=== PATIENT | female | born 1945 | race Caucasian/White ===

== ENCOUNTER 2017-08-23 18:05 | Emergency (ER) | payer MEDICARE, BC ==
[~2017-08-23] VITALS: Ht 162.6 cm; Wt 67.0 kg
[~2017-08-23 18:05] MED LIST: AMBIEN5 MG PO; CLOBETASOL0.053 EX; FLEXERIL PO; LIPITOR20 MG PO; ULTRAM50 M1 PO
[2017-08-23 18:34] LABS: URINE BILIRUBIN - DIPSTICK NEGATIVE (NEGATIVE); URINE BLOOD DIPSTICK NEGATIVE (NEGATIVE); URINE COLOR YELLOW; URINE GLUCOSE - DIPSTICK NEGATIVE (NEGATIVE); URINE KETONE NEGATIVE (NEGATIVE); URINE LEUK ESTERASE TRACE (NEGATIVE); URINE NITRITE - DIPSTICK NEGATIVE (Negative); URINE PROTEIN - DIPSTICK NEGATIVE (NEG-TRACE); URINE SPECIFIC GRAVITY >=1.030; URINE UROBILINOGEN - DIPSTICK 0.2 E.U./dL (0.2)
[2017-08-23 18:38] LABS: URINE CLARITY CLEAR
[2017-08-23] MEDS ORDERED: OXYBUTYNIN10 MG PO (18:52)
[2017-08-23] MEDS ORDERED: ATORVASTATIN CA10 MG PO (18:53)
[2017-08-23] MEDS ORDERED: CELECOXIB200 MG PO (18:53)
[2017-08-23] MEDS ORDERED: PRILOSEC20 MG PO (18:54)
[2017-08-23] MEDS ORDERED: LEVOTHYROXIN50 MCG PO (18:55)
[2017-08-23] MEDS ORDERED: PYRIDIUM200 MG PO (20:06)
[2017-08-23] MEDS ORDERED: CIPROFLOXACN500 MG PO (20:06)
[2017-08-23 20:27] VITALS: BP 142/68
== END 2017-08-23 20:27 | disposition home or self-care (01) ==
LOC: ED 18:05
PROVIDERS: Emergency Medicine
DX: N34.2 Other urethritis (principal); R30.0 Dysuria; R35.0 Frequency of micturition

== ENCOUNTER → 2018-10-22 | Outpatient (REF) | payer MEDICARE, BC ==
[~2018-10-22] MED LIST changes: +ATORVASTATIN CA10 MG PO; +CELECOXIB200 MG PO; +CIPROFLOXACN500 MG PO; +LEVOTHYROXIN50 MCG PO; +OXYBUTYNIN10 MG PO; +PRILOSEC20 MG PO; +PYRIDIUM200 MG PO
[2018-10-22 08:11] LABS: HEMATOCRIT 43.8 % (37.0-47.0); HEMOGLOBIN 14.7 g/dl (12.0-16.0); IMMATURE GRANULOCYTES 0.4 % (0.0-5.0); MEAN CELL VOLUME 89.8 fL CALC (80.0-100.0); MEAN CORPUSCULAR HGB 30.1 pG CALC (26.0-32.0); MEAN CORPUSCULAR HGB CONC 33.6 g/L CALC (32.0-36.0); NEUT# 3.05 thou/uL (2.00-7.15); RED BLOOD COUNT 4.88 mill/uL (4.20-5.60); RED CELL DISTRI WIDTH 12.9 % (11.5-15.5)
[2018-10-22 09:12] LABS: ALBUMIN 4.4 g/dL (3.2-5.0); ALKALINE PHOSPHATASE 70 u/l (38-126); ANION GAP 13 (6-22 (CALC)); BILIRUBIN, TOTAL 0.6 mg/dL (0.0-1.4); BUN 9 mg/dL (8-23); BUN/CREATININE RATIO 15 (12-20 (CALC)); CALCULATED LDLCHOLESTEROL 74 mg/dL (62-129 (CALC)); CARBON DIOXIDE 31 mmol/l (22-30); CHLORIDE 102 mmol/l (95-108); CHOLESTEROL HDL RATIO 2.1 (<4.4 (CALC)); CREATININE 0.6 mg/dL (0.5-1.0); GFR > 60 ML/MIN (>=60 (CALC)); GFR FOR AFR.AMER. > 60 ML/MIN (>=60 (CALC)); HDL CHOLESTEROL 85 mg/dL (>=40); POTASSIUM 4.1 mmol/l (3.5-5.1); SGOT/AST 29 u/l (9-36); SODIUM 141 mmol/l (137-146); TOTAL CHOLESTEROL 177 mg/dl (0-199); TOTAL PROTEIN 6.9 g/dL (6.3-8.2); TOTAL TRIGLYCERIDES 91 mg/dl (30-149); VLDL CHOLESTROL 18 mg/dl (0-48 (CALC))
[2018-10-22 09:34] LABS: TSH, 3RD GENERATION 1.89 uIU/mL (0.47 - 4.68)
== END | disposition home or self-care (01) ==
LOC: LAB 07:20
PROVIDERS: ATTEND Internal Medicine
DX: E78.49 Other hyperlipidemia (principal)

== ENCOUNTER 2018-12-10 08:28 | Emergency (ER) | payer MEDICARE, BC ==
[~2018-12-10] VITALS: Ht 162.6 cm; Wt 72.0 kg
[2018-12-10] MEDS ORDERED: MYRBETRIQ25 MG PO (08:41)
[2018-12-10] MEDS ORDERED: FOSAMAX PLUS PO (08:42)
[2018-12-10] MEDS ORDERED: TRAMADOL HYDROC50 MG PO (09:51)
[2018-12-10 10:04] VITALS: BP 154/70
== END 2018-12-10 10:04 | disposition home or self-care (01) ==
LOC: ED 08:28
PROC: 2W3QX1Z Immobilization of Right Lower Leg using Splint (ICD-10-PCS; principal; 2018-12-10)
DX: S92.354A Nondisplaced fracture of fifth metatarsal bone, right foot, initial encounter for closed fracture (principal); X50.1XXA Overexertion from prolonged static or awkward postures, initial encounter; Y93.01 Activity, walking, marching and hiking; Y92.232 Corridor of hospital as the place of occurrence of the external cause

== ENCOUNTER 2019-03-30 07:59 | Day surgery (SDC) | payer MEDICARE, BC ==
[~2019-03-30 07:59] MED LIST changes: +CALCIUM600 M1 PO; +FOSAMAX PLUS PO; +MYRBETRIQ25 MG PO; +TRAMADOL HYDROC50 MG PO; +VITAMIN D2000 UNI3 PO
[2019-03-30 10:37] VITALS: BP 139/62
== END 2019-03-30 10:50 | disposition home or self-care (01) ==
LOC: ENDO 07:59 → ORM 08:00 → ENDO 09:55
PROVIDERS: ATTEND Surgery
PROC: 0DJD8ZZ Inspection of Lower Intestinal Tract, Via Natural or Artificial Opening Endoscopic (ICD-10-PCS; principal; 2019-03-30)
DX: K57.90 Diverticulosis of intestine, part unspecified, without perforation or abscess without bleeding (principal); E03.9 Hypothyroidism, unspecified

== ENCOUNTER 2020-01-06 14:32 | Emergency (ER) | payer MEDICARE, BC ==
[2020-01-06] MEDS ORDERED: FLONASE AL50 MCG/ACT (15:14)
[2020-01-06] MEDS ORDERED: METHYLPRED4 MG PO (15:14)
[2020-01-06] MEDS ORDERED: VOLTAREN1%GEL TOP (16:45)
[2020-01-06 16:50] VITALS: BP 146/72
== END 2020-01-06 17:20 | disposition home or self-care (01) ==
LOC: ED 14:32
DX: M25.512 Pain in left shoulder (principal); S00.93XA Contusion of unspecified part of head, initial encounter; S70.02XA Contusion of left hip, initial encounter; W11.XXXA Fall on and from ladder, initial encounter; Y93.E9 Activity, other interior property and clothing maintenance; Y92.009 Unspecified place in unspecified non-institutional (private) residence as the place of occurrence of the external cause

== ENCOUNTER 2021-02-05 06:44 | Day surgery (SDC) | payer MEDICARE, BC ==
[~2021-02-05] VITALS: Ht 162.6 cm; Wt 64.9 kg
[~2021-02-05 06:44] MED LIST changes: +FLONASE AL50 MCG/ACT; +IMODIUM2 MG PO; +METHYLPRED4 MG PO; +VOLTAREN1%GEL TOP
[2021-02-05 09:42] VITALS: BP 152/68
== END 2021-02-05 10:06 | disposition home or self-care (01) ==
LOC: ENDO 06:44 → ORM 08:55 → ENDO 10:06
PROVIDERS: ATTEND Surgery
PROC: 0DBE8ZX Excision of Large Intestine, Via Natural or Artificial Opening Endoscopic, Diagnostic (ICD-10-PCS; principal; 2021-02-05)
DX: K57.31 Diverticulosis of large intestine without perforation or abscess with bleeding (principal); K64.8 Other hemorrhoids; E03.9 Hypothyroidism, unspecified; E78.5 Hyperlipidemia, unspecified; F41.9 Anxiety disorder, unspecified; Z80.0 Family history of malignant neoplasm of digestive organs

== ENCOUNTER 2024-03-21 18:15 | Emergency (ER) | payer MEDICARE, BC ==
[2024-03-21] VITALS (10 sets, daily range): BP systolic 139–194; BP diastolic 58–80
[~2024-03-21] VITALS: Ht 162.6 cm; Wt 61.0 kg
[2024-03-21] MEDS ORDERED: SODIUM CHLORIDE 0.9% 1,000 ML IV ONE (20:05)
[2024-03-21] MEDS ORDERED: DICYCLOMINE HCL 20 MG/2 ML VIAL IM ONE (20:05)
[2024-03-21 20:26] LABS: BASO% 0.2 % (0-3); EOS% 0.6 % (0-8); HEMATOCRIT 45.4 % (37.0-47.0); IMMATURE GRANULOCYTES 0.2 % (0.0-5.0); LYMPH% 13.7 % (15-41); MEAN CORPUSCULAR HGB 29.4 pG CALC (26.0-32.0); MONO% 9.9 % (2-13); NEUT# 9.35 thou/uL (2.00-7.15); NEUT% 75.4 % (42-76); RED BLOOD COUNT 5.1 mill/uL (4.20-5.60); RED CELL DISTRI WIDTH 12.4 % (11.5-15.5)
[2024-03-21 20:48] LABS: ALBUMIN 4.7 g/dL (3.2-5.0); BILIRUBIN, TOTAL 0.8 mg/dL (0.02-1.3); CREATININE 0.6 mg/dL (0.5-1.0); POTASSIUM 3.4 mmol/l (3.5-5.1); TOTAL PROTEIN 7.8 g/dL (6.3-8.2)
[2024-03-21 21:16] LABS: URINE BILIRUBIN - DIPSTICK Negative (NEGATIVE); URINE BLOOD DIPSTICK Negative (NEGATIVE); URINE GLUCOSE - DIPSTICK Negative (NEGATIVE); URINE KETONE Negative (NEGATIVE); URINE NITRITE - DIPSTICK Negative (Negative); URINE PROTEIN - DIPSTICK Negative (NEG-TRACE); URINE SPECIFIC GRAVITY 1.015; URINE UROBILINOGEN - DIPSTICK 0.2 E.U./dL (0.2)
[2024-03-21 21:17] LABS: URINE COLOR Yellow; URINE LEUK ESTERASE Small (NEGATIVE)
[2024-03-21 21:24] LABS: URINE RBC 0-2 RBC/hpf (0-5); URINE SQUAMOUS EPITHELIAL CELL FEW EPI/hpf (0-FEW)
[2024-03-21] MEDS ORDERED: DICYCLOMINE HYD10 MG PO (23:23)
== END 2024-03-21 23:33 | disposition home or self-care (01) ==
LOC: ED 18:15
PROVIDERS: Family Medicine
DX: R19.7 Diarrhea, unspecified (principal); R10.30 Lower abdominal pain, unspecified; E78.5 Hyperlipidemia, unspecified; E03.9 Hypothyroidism, unspecified; K52.9 Noninfective gastroenteritis and colitis, unspecified

== ENCOUNTER 2024-10-17 01:16 | Emergency (ER) | payer MEDICARE, BC ==
[~2024-10-17] VITALS: Ht 162.6 cm; Wt 56.0 kg
[~2024-10-17 01:16] MED LIST changes: +DICYCLOMINE HYD10 MG PO
[2024-10-17 01:31] VITALS: BP 172/74
[2024-10-17] MEDS ORDERED: MORPHINE SULFATE 4 MG/ML VIAL IV ONE (01:40)
[2024-10-17] MEDS ORDERED: SODIUM CHLORIDE 0.9% 1,000 ML IV ONE ×3 (01:40→02:40)
[2024-10-17] MEDS ORDERED: ONDANSETRON HCl 4 MG/2 ML SDV IV ONE (01:40)
[2024-10-17 01:49] LABS: BASO% 0.2 % (0-3); EOS% 0.9 % (0-8); HEMATOCRIT 38.7 % (37.0-47.0); IMMATURE GRANULOCYTES 0.3 % (0.0-5.0); LYMPH% 15.7 % (15-41); MEAN CELL VOLUME 91.3 fL CALC (80.0-100.0); MEAN CORPUSCULAR HGB 30.7 pG CALC (26.0-32.0); MEAN CORPUSCULAR HGB CONC 33.6 g/dL CAL (32.0-36.0); MONO% 7.7 % (2-13); NEUT# 8.16 thou/uL (2.00-7.15); NEUT% 75.2 % (42-76); RED BLOOD COUNT 4.24 mill/uL (4.20-5.60); RED CELL DISTRI WIDTH 13.3 % (11.5-15.5)
[2024-10-17 02:02] LABS: ALBUMIN 4.3 g/dL (3.2-5.0); BILIRUBIN, TOTAL 0.8 mg/dL (0.02-1.3); CREATININE 0.7 mg/dL (0.5-1.0); POTASSIUM 3.2 mmol/l (3.5-5.1)
[2024-10-17 03:26] LABS: URINE BILIRUBIN - DIPSTICK Negative (NEGATIVE); URINE BLOOD DIPSTICK Large (NEGATIVE); URINE COLOR Yellow; URINE GLUCOSE - DIPSTICK Negative (NEGATIVE); URINE KETONE 15 mg/dL (NEGATIVE); URINE LEUK ESTERASE Small (NEGATIVE); URINE NITRITE - DIPSTICK Negative (Negative); URINE PROTEIN - DIPSTICK Negative (NEG-TRACE); URINE UROBILINOGEN - DIPSTICK 0.2 E.U./dL (0.2)
[2024-10-17 03:32] LABS: URINE MUCUS RARE hpf (NONE-FEW); URINE RBC 25-50 RBC/hpf (0-5); URINE SQUAMOUS EPITHELIAL CELL FEW EPI/hpf (0-FEW)
[2024-10-17] MEDS ORDERED: KETOROLAC TROMETHAMINE 30 MG/ML SDV IV ONE (03:45)
[2024-10-17] MEDS ORDERED: ONDANSETRON4 MG PO (04:18)
[2024-10-17] MEDS ORDERED: TAMSULOSIN0.4 MG PO (04:18)
[2024-10-17] MEDS ORDERED: LORTAB 1010 MG PO (04:18)
[2024-10-17 04:29] VITALS: BP 127/61
[2024-10-17 04:36] VITALS: BP 127/61
== END 2024-10-17 05:10 | disposition home or self-care (01) ==
LOC: ED 01:16
PROVIDERS: Family Medicine
DX: N13.2 Hydronephrosis with renal and ureteral calculous obstruction (principal); I10 Essential (primary) hypertension; E03.9 Hypothyroidism, unspecified; E78.5 Hyperlipidemia, unspecified
CPT/HCPCS: J2405

== ENCOUNTER 2024-10-21 01:40 | Emergency (ER) | payer MEDICARE, BC ==
[~2024-10-21] VITALS: Ht 162.6 cm; Wt 59.0 kg
[~2024-10-21 01:40] MED LIST changes: +LORTAB 1010 MG PO; +ONDANSETRON4 MG PO; +TAMSULOSIN0.4 MG PO
[2024-10-21] MEDS ORDERED: KETOROLAC TROMETHAMINE 30 MG/ML SDV IV ONE (01:55)
[2024-10-21] MEDS ORDERED: SODIUM CHLORIDE 0.9% 1,000 ML IV STA ×2 (01:55→03:26)
[2024-10-21] MEDS ORDERED: TAMSULOSIN HCL 0.4 MG CAP PO ONE (02:00)
[2024-10-21] MEDS ORDERED: oxyCODONE 5MG/ ACETAMINOPHEN 325MG TAB PO ONE (02:00)
[2024-10-21] MEDS ORDERED: SODIUM CHLORIDE 0.9% 1,000 ML IV ONE (02:00)
[2024-10-21] MEDS ORDERED: PROMETHAZINE HCL 25 MG/ML AMP IV ONE (02:00)
[2024-10-21 02:31] LABS: BASO% 0.2 % (0-3); EOS% 0.3 % (0-8); HEMATOCRIT 39.9 % (37.0-47.0); HEMOGLOBIN 13.1 g/dl (12.0-16.0); LYMPH% 8.4 % (15-41); MEAN CELL VOLUME 92.1 fL CALC (80.0-100.0); MEAN CORPUSCULAR HGB 30.3 pG CALC (26.0-32.0); MEAN CORPUSCULAR HGB CONC 32.8 g/dL CAL (32.0-36.0); MONO% 6.2 % (2-13); NEUT# 10.91 thou/uL (2.00-7.15); NEUT% 83.9 % (42-76); RED BLOOD COUNT 4.33 mill/uL (4.20-5.60); RED CELL DISTRI WIDTH 13.4 % (11.5-15.5)
[2024-10-21 02:40] VITALS: BP 154/69
[2024-10-21 02:41] LABS: ALBUMIN 4.3 g/dL (3.2-5.0); BILIRUBIN, TOTAL 0.5 mg/dL (0.02-1.3); CREATININE 0.8 mg/dL (0.5-1.0); POTASSIUM 3.6 mmol/l (3.5-5.1); TOTAL PROTEIN 6.9 g/dL (6.3-8.2)
[2024-10-21 03:00] VITALS: BP 154/66
[2024-10-21 04:00] VITALS: BP 122/49
[2024-10-21 04:52] LABS: URINE BILIRUBIN - DIPSTICK Negative (NEGATIVE); URINE BLOOD DIPSTICK Moderate (NEGATIVE); URINE GLUCOSE - DIPSTICK Negative (NEGATIVE); URINE KETONE Negative (NEGATIVE); URINE LEUK ESTERASE Negative (NEGATIVE); URINE NITRITE - DIPSTICK Negative (Negative); URINE PROTEIN - DIPSTICK Negative (NEG-TRACE); URINE SPECIFIC GRAVITY 1.015; URINE UROBILINOGEN - DIPSTICK 0.2 E.U./dL (0.2)
[2024-10-21 04:54] LABS: URINE COLOR Yellow
[2024-10-21 04:57] LABS: URINE EPITHELIAL CELLS FEW EPI/hpf (0-FEW); URINE RBC 50-100 RBC/hpf (0-5)
[2024-10-21 04:59] LABS: URINE BACTERIA FEW hpf
[2024-10-21 05:00] VITALS: BP 106/47
[2024-10-21] MEDS ORDERED: PERCOCET 5/321 COMBO PO (05:26)
[2024-10-21] MEDS ORDERED: NAPROXEN375 MG PO (05:26)
[2024-10-21 05:50] VITALS: BP 106/47
== END 2024-10-21 05:50 | disposition home or self-care (01) ==
LOC: ED 01:40
PROVIDERS: Family Medicine
DX: N13.2 Hydronephrosis with renal and ureteral calculous obstruction (principal); E03.9 Hypothyroidism, unspecified; E78.5 Hyperlipidemia, unspecified
CPT/HCPCS: J2550

== ENCOUNTER 2024-11-13 21:47 | Emergency (ER) | payer MEDICARE, BC ==
[~2024-11-13] VITALS: Ht 162.6 cm; Wt 58.0 kg
[~2024-11-13 21:47] MED LIST changes: +NAPROXEN375 MG PO; +PERCOCET 5/321 COMBO PO
[2024-11-13 22:00] VITALS: BP 145/69
[2024-11-13] MEDS ORDERED: NITROFURANTOIN MONOHYDRATE/MAC (MACROBID) 100 MG/CAP PO ONE (22:15)
[2024-11-13 22:22] LABS: URINE BILIRUBIN - DIPSTICK Negative (NEGATIVE); URINE BLOOD DIPSTICK Moderate (NEGATIVE); URINE GLUCOSE - DIPSTICK 100 mg/dL (NEGATIVE); URINE KETONE Trace mg/dL (NEGATIVE); URINE LEUK ESTERASE Trace (NEGATIVE); URINE PROTEIN - DIPSTICK Trace mg/dL (NEG-TRACE)
[2024-11-13 22:25] LABS: URINE COLOR Orange; URINE NITRITE - DIPSTICK Positive (Negative)
[2024-11-13 22:29] LABS: URINE BACTERIA FEW hpf; URINE MUCUS RARE hpf (NONE-FEW); URINE SQUAMOUS EPITHELIAL CELL FEW EPI/hpf (0-FEW)
[2024-11-13] MEDS ORDERED: MACROBID100 M1 PO (22:33)
[2024-11-13] MEDS ORDERED: traMADol HCL 50 MG/TAB PO ONE (22:40)
[2024-11-13 22:48] VITALS: BP 145/69
[2024-11-13] MEDS ORDERED: TRAMADOL HYDROC50 M1 PO (22:56)
== END 2024-11-13 22:48 | disposition home or self-care (01) ==
LOC: ED 21:47
PROVIDERS: Family Medicine
DX: N39.0 Urinary tract infection, site not specified (principal); I10 Essential (primary) hypertension; E03.9 Hypothyroidism, unspecified; Z87.442 Personal history of urinary calculi